=== PATIENT | female | born 1975 | race Caucasian/White ===

== ENCOUNTER 2022-08-03 15:53 | Emergency (ER) | payer BC, OTHER ==
[2022-08-03] MEDS ORDERED: diphenhydrAMINE 50 MG/ML VIAL ONE (17:53)
[2022-08-03] MEDS ORDERED: Dexamethasone 10 MG/ML VIAL ONE (17:53)
[2022-08-03] MEDS ORDERED: Ondansetron PF 4 MG/2 ML Vial ONE (17:53)
[2022-08-03] MEDS ORDERED: Ketorolac Tromethamine 30 MG/ML VIAL ONE (17:54)
[2022-08-03 18:08] LABS: ALT (SGPT) 31 U/L (8-55); AST (SGOT) 24 U/L (5-34); Albumin 3.9 g/dL (3.5-5.0); Alkaline Phosphatase 47 U/L (40-110); Anion Gap 13 mmol/L (10-20); BUN (Urea Nitrogen) 17 mg/dL (7.0-18.7); Bilirubin, Total 0.8 mg/dL (0.2-1.2); Calc. Creatinine Clearance 0 mL/min (70-130); Calcium 9.4 mg/dL (7.8-10.44); Carbon Dioxide 24 mmol/L (22-29); Chloride 103 mmol/L (98-107); Estimated GFR 96; Glucose 84 mg/dL (70-105); Potassium 3.6 mmol/L (3.5-5.1); Protein, Total 6.9 g/dL (6.0-8.3); Sodium 136 mmol/L (136-145)
[2022-08-03 18:09] LABS: #Basophils 0.1 10x3/uL (0.0-0.2); #Eosinphils 0.1 10x3/uL (0.0-0.5); #Monocytes 0.6 10x3/uL (0.0-1.1); #Neutrophils 5.7 10x3/uL (1.5-8.4); %Basophils 0.6 % (0.0-2.0); %Eosinophils 1.3 % (0.0-6.0); %Lymphocytes 24.2 % (18.0-47.0); %Monocytes 7.3 % (0.0-10.0); %Neutrophils 66.1 % (40.0-75.0); Hemoglobin 14.6 g/dL (12.0-15.5); Mean Corpuscular Hemoglobin 31.7 pg (27.0-33.0); Mean Corpuscular Volume 87.9 fl (81.6-98.3); Mean Platelet Volume 8.8 fl (7.4-10.4); Platelet Count 238 10x3/uL (150-450); RBC Distribution Width 12.2 % (11.5-14.5); Red Blood Cell (RBC) Count 4.61 10x6/uL (3.90-5.03); White Blood Cell (WBC) Count 8.6 10x3/uL (3.5-10.5)
[2022-08-03 18:16] LABS: Bilirubin Neg (Negative); Blood, Urine Negative (Negative); Clarity Clear (Clear); Glucose, Urine (Dipstick) Normal (Negative); Ketone, Urine 15 mg/dL (Negative); Leukocyte Negative (Negative); Nitrite Negative (Negative); Protein, Urine (Dipstick) Negative (Neg-Trace); Specific Gravity, Urine 1.015 (1.005-1.030); Urobilinogen Normal mg/dL (Less than 2)
[2022-08-03 18:18] LABS: Pregnancy Test - Urine (BHCG) Negative (Negative); Pregu Control Background? CLEAR/WHITE (CLR/WHITE); Pregu Control Bar Appear? YES (CONTROL BAR); Specific Gravity 1.015 (1.002-1.036)
== END 2022-08-03 19:40 | disposition home or self-care (01) ==
LOC: CSHERS 15:53
DX: G43.909 Migraine, unspecified, not intractable, without status migrainosus (principal)
CPT/HCPCS: 36416; 70450; 80053; 81003; 81025; 84484; 85025; 93005; 96374; 96375; J1100; J1200; J1885; J2405